=== PATIENT | male | born 1955 | race Hispanic/Latino ===

== ENCOUNTER 2018-09-08 20:00 | Inpatient (IN) | payer OTHER ==
[~2018-09-08] VITALS: Ht 165.1 cm; Wt 97.4 kg
[~2018-09-08 20:00] MED LIST: FENOFIBRATE160 MG PO; GLIPIZIDE5 MG PO; GLUCOPHAGE1000 MG PO; LISINOPRIL20 MG PO; PRILOSEC40 MG PO; ZOCOR40 MG PO
[2018-09-08] MEDS ORDERED: MORPHINE SULFATE INJ 4 MG/ML INJ IV ONE (21:15)
[2018-09-08] MEDS ORDERED: SODIUM CHLORIDE 0.9% 1000ML 1,000 ML IV ONE (21:15)
[2018-09-08] MEDS ORDERED: DIATRIZOATE MEGL/DIATRIZOA SOD 30 ML BTL PO ONE (21:17)
[2018-09-08 21:29] LABS: BASOPHILS % 0.3 % (0.0-1.0); HEMATOCRIT 47.5 % (38.2-49.6); HEMOGLOBIN 16.7 g/dL (14.0-18.0); LYMPHOCYTES # (AUTO) 0.8 (1.0-3.2); LYMPHOCYTES % 10.2 % (18.0-39.1); MEAN CORPUSCULAR HEMOGLOBIN 32.6 pg (28-32); MEAN CORPUSCULAR HGB CONC 35.2 g/dL (31-35); MEAN CORPUSCULAR VOLUME 92.6 fL (81-99); MONOCYTES # (AUTO) 0.4 (0.2-0.8); NEUTROPHILS # (AUTO) 6.1 (2.1-6.9); NEUTROPHILS % 83.1 % (38.7-80.0); PLATELET COUNT 184 x10e3/uL (140-360); RED BLOOD COUNT 5.13 x10e6/uL (4.3-5.7); RED CELL DISTRIBUTION WIDTH 13.6 % (11.7-14.4)
[2018-09-08] MEDS ORDERED: ONDANSETRON HCL INJ 2 MG/ML VIAL IV ONE (21:30)
[2018-09-08 21:51] LABS: CLARITY,URINE HAZY (CLEAR); COLOR,URINE YELLOW (YELLOW)
[2018-09-08 21:52] LABS: BILIRUBIN,URINE 1+ (NEGATIVE); KETONES,URINE 1+ (NEGATIVE); LEUKOCYTE ESTERASE ,URINE NEGATIVE (NEGATIVE); NITRITE,URINE NEGATIVE (NEGATIVE); PROTEIN,URINE DIPSTICK 2+ (NEGATIVE); URINE UROBILINOGEN 1 mg/dL (0.2 - 1)
[2018-09-08 21:53] LABS: BACTERIA,URINE MODERATE /HPF; EPITHELIAL CELLS,URINE FEW /LPF; WBC,URINE (MAN) 0-5 /HPF (0-5)
[2018-09-08 21:55] LABS: ALANINE AMINOTRANSFERASE 44 IU/L (0-55); ALBUMIN 4.7 g/dL (3.5-5.0); ALBUMIN/GLOBULIN RATIO 1.8 (0.8-2.0); ALKALINE PHOSPHATASE 44 IU/L (40-150); AMYLASE 47 U/L (25-125); ANION GAP 18.2 mmol/L (8-16); BLOOD UREA NITROGEN 19 mg/dL (7-26); BUN/CREATININE RATIO 17 (6-25); CALCIUM 10.1 mg/dL (8.4-10.2); CARBON DIOXIDE 23 mmol/L (22-29); CHLORIDE 99 mmol/L (98-107); CREATININE, SERUM 1.09 mg/dL (0.72-1.25); EST GLOMERULAR FILTRATION RATE > 60 ML/MIN (60-); GLUCOSE 237 mg/dL (74-118); LIPASE 7 U/L (8-78); POTASSIUM 4.2 mmol/L (3.5-5.1); SODIUM 136 mmol/L (136-145)
[2018-09-08] MEDS ORDERED: IOPAMIDOL 370 MG/ML 200 ML INFUS..BTL INJ ONE (22:16)
[2018-09-08] MEDS ORDERED: SODIUM CHLORIDE 0.9% 50ML 50 ML ONE (22:16)
--- NOTE | 2018-09-08 22:57 | Diagnostic Imaging Report ---
EXAM: CT ABDOMEN/PELVIS W DATE: 09/08/2018 9:03 PM INDICATION: Abdominal pain COMPARISON: None TECHNIQUE: The abdomen and pelvis were scanned using a multidetector helical scanner. Coronal and sagittal reformations were obtained. CT low dose techniques were utilized, as applicable. IV Contrast: 100 ml Isovue 300/370 FINDINGS: LOWER THORAX: No consolidations LIVER/BILIARY: Hepatic steatosis. No masses. No ductal dilatation. GALLBLADDER: Unremarkable SPLEEN: Unremarkable PANCREAS: Unremarkable ADRENALS: No nodules KIDNEYS: No suspicious renal masses. Probable right superior renal cyst. No hydronephrosis. GI TRACT: Distended loops small bowel with transition point in the right lower quadrant. Remainder of the small bowel is decompressed. Normal appendix. VESSELS: Moderate atherosclerotic changes PERITONEUM/RETROPERITONEUM: Mild mesenteric edema and free fluid. LYMPH NODES: No lymphadenopathy REPRODUCTIVE ORGANS/BLADDER: Penile implants device noted. Mild prostatomegaly. Unremarkable bladder.. SOFT TISSUES: Unremarkable BONES: No suspicious bone lesions. IMPRESSION: Small bowel obstruction with transition point in the right anterior abdomen, likely adhesive disease. Signed by: Dr Lian Medina MD on 09/08/2018 10:53 PM
[2018-09-08] MEDS ORDERED: PIPER-TAZ 3.375 GM 50 ML IV ONE (23:15)
--- NOTE | 2018-09-08 23:15 | NUR ---
18FR NGT INSERTED TO L NARE PER MD ORDERS. 700CC BROWNISH COLORED FLUID SUCTIONED P NGT PLACED. NGT PLACEMENT VERIFIED BY AUSCULTATION AND SECURED IN PLACE.
[2018-09-08] MEDS ORDERED: OMEGA 3 1,0001 EACH PO (23:51)
[2018-09-08] MEDS ORDERED: ACTOS15 MG PO (23:51)
[2018-09-08] MEDS ORDERED: PANTOPRAZOLE SO40 MG PO (23:51)
[2018-09-08] MEDS ORDERED: SODIUM CHLORIDE 0.9% 1000ML 1,000 ML IV SCH (23:55)
[2018-09-09] VITALS (10 sets, daily range): BP systolic 122–153; BP diastolic 66–86
[2018-09-09] MEDS ORDERED: DEXTROSE 50% SYRINGE 50 ML IV PRN
--- OUTSIDE RECORDS SUMMARY | 2018-09-09 00:02 | XMS REPORT ---
[facility] Address Unknown Phone Unavailable Care Team Providers Care Vascular Technician Name Role Phone Kristen IRBY Unavailable Unavailable Problems This patient has no known problems. Allergies, Adverse Reactions, Alerts This patient has no known allergies or adverse reactions. Medications This patient has no known medications. Results Test Description Test Time Test Comments Text Results Atomic Results Result Comments CT ABDOMEN/PELVIS W 2018-09-08 22:46:00 [place] [address] Patient Name: BRIAN PICHARDO MR #: [id number] : 1955 Age/Sex: 63/M Req #: [id number] Adm Physician: Ordered by: CONG IRBY MD Report #: [id number] Location: ER Room/Bed: Procedure: [id number] CT/CT ABDOMEN/PELVIS W Exam Date: 09/08/18 Exam Time: 2215 REPORT STATUS: Signed EXAM: CT ABDOMEN/PELVIS W DATE: 09/08/2018 9:03 PM INDICATION: Abdominal pain COMPARISON: None TECHNIQUE: The abdomen and pelvis were scanned using a multidetector helical scanner. Coronal and sagittal reformations were obtained. CT low dose techniques were utilized, as applicable. IV Contrast: 100 ml Isovue 300/370 FINDINGS: LOWER THORAX: No consolidations LIVER/BILIARY: Hepatic steatosis. No masses. No ductal dilatation. GALLBLADDER: Unremarkable SPLEEN: Unremarkable PANCREAS: Unremarkable ADRENALS: No nodules KIDNEYS: No suspicious renal masses. Probable right superior renal cyst. No hydronephrosis. GI TRACT: Distended loops small bowel with transition point in the right lower quadrant. Remainder of the small bowel is decompressed. Normal appendix. VESSELS: Moderate atherosclerotic changes PERITONEUM/RETROPERITONEUM: Mild mesenteric edema and free fluid. LYMPH NODES: No lymphadenopathy REPRODUCTIVE ORGANS/BLADDER: Penile implants device noted. Mild prostatomegaly. Unremarkable bladder.. SOFT TISSUES: Unremarkable BONES: No suspicious bone lesions. IMPRESSION: Small bowel obstruction with transition point in the right anterior abdomen, likely adhesive disease. Signed by: Dr Nakia Medina MD on 09/08/2018 10:53 PM Dictated By: NAKIA MEDINA MD 52 Transcribed By: FREEDOM on 09/08/182252 COPY TO: CONG IRBY MD
[2018-09-09] MEDS ORDERED: HYDROMORPHONE 2MG/ML 2 MG/ML ML ONE (01:04)
[2018-09-09] MEDS ORDERED: ONDANSETRON HCL INJ 2 MG/ML VIAL IV STA (01:14)
--- NOTE | 2018-09-09 01:55 | NUR ---
PT ARRIVED TO THE UNIT FROM ER IN A STRETCHER.WITH C/O ABD.PAIN.ASSESSMENT DONE.NO RESP.DISTRESS.AAOX3.18FR NGT PLACED TO L.NARE.NGT TO LIWS.ABD.PAIN VOICED 02/05.MAINTAINING NPO.FAMILY MEMBER AT BED SIDE.SCD APPLIED. PER REPORT FROM ER MD BAGLEY IS AWARE OF THE CONSULTS.ORIENTED TO THE UNIT.BED LOCKED AND IN LOWEST POSITION.PHONE AND CALL LIGHT WITHIN REACH.INSTRUCTED TO CALL FOR ASSISTANCE NEEDED.
[2018-09-09] MEDS ORDERED: HYDROMORPHONE 2MG/ML 2 MG/ML ML IV PRN ×2 (05:02→05:15)
[2018-09-09] MEDS: ONDANSETRON HCL INJ 2 MG/ML VIAL IV PRN ×2 (05:06→09:15)
[2018-09-09] MEDS ORDERED: HYDROMORPHONE 1MG/1ML INJ IV PRN ×2 (05:15)
[2018-09-09] MEDS: PIPER-TAZ 3.375 GM / NS 50ML IV SCH ×3 (05:44→21:49)
[2018-09-09 06:30] LABS: BASOPHILS % 0.3 % (0.0-1.0); EOSINOPHILS % 0.3 % (0.0-6.0); HEMATOCRIT 45.8 % (38.2-49.6); HEMOGLOBIN 15.9 g/dL (14.0-18.0); LYMPHOCYTES # (AUTO) 0.3 (1.0-3.2); LYMPHOCYTES % 9.1 % (18.0-39.1); MEAN CORPUSCULAR HEMOGLOBIN 32.1 pg (28-32); MEAN CORPUSCULAR HGB CONC 34.7 g/dL (31-35); MEAN CORPUSCULAR VOLUME 92.3 fL (81-99); MONOCYTES # (AUTO) 0.5 (0.2-0.8); MONOCYTES % 17.2 % (4.4-11.3); NEUTROPHILS # (AUTO) 2.2 (2.1-6.9); NEUTROPHILS % 72.8 % (38.7-80.0); PLATELET COUNT 172 x10e3/uL (140-360); RED BLOOD COUNT 4.96 x10e6/uL (4.3-5.7); RED CELL DISTRIBUTION WIDTH 13.7 % (11.7-14.4)
[2018-09-09 06:55] LABS: ALANINE AMINOTRANSFERASE 36 IU/L (0-55); ALBUMIN 4.1 g/dL (3.5-5.0); ALBUMIN/GLOBULIN RATIO 1.7 (0.8-2.0); ALKALINE PHOSPHATASE 38 IU/L (40-150); BLOOD UREA NITROGEN 19 mg/dL (7-26); BUN/CREATININE RATIO 20 (6-25); CALCIUM 9.2 mg/dL (8.4-10.2); CARBON DIOXIDE 23 mmol/L (22-29); CHLORIDE 102 mmol/L (98-107); CREATININE, SERUM 0.93 mg/dL (0.72-1.25); EST GLOMERULAR FILTRATION RATE > 60 ML/MIN (60-); GLUCOSE 228 mg/dL (74-118); SODIUM 138 mmol/L (136-145)
--- NOTE | 2018-09-09 07:00 | NUR ---
Report given to the oncoming rn.walking rounds done.stable condition.
--- NOTE | 2018-09-09 07:26 | NUR ---
Received patient this morning, in bed a/ox3, pains well managed and patient with SBO, NG tube in place to LIWS, call light within reach, in room with patient, will monitor
[2018-09-09] MEDS: INSULIN REGULAR, HUMAN 100 UNIT/1 ML 3ML VIAL SQ SCH ×4 (07:30→20:29)
[2018-09-09 08:49] LABS: BAND NEUTROPHILS % (MANUAL) 10 %; LYMPHOCYTES % (MANUAL) 20 % (19-48); MONOCYTES % (MANUAL) 16 % (3.4-9.0); NEUTROPHILS % (MANUAL) 54 % (40-74)
[2018-09-09 08:51] LABS: PLATELET ESTIMATE ADEQUATE; PLATELET MORPHOLOGY COMMENT NORMAL; RBC MORPHOLOGY COMMENT NORMAL
[2018-09-09] MEDS: SODIUM CHLORIDE 0.45% 1,000 ML IV SCH ×2 (08:57→16:11)
[2018-09-09] MEDS: PANTOPRAZOLE 40 MG 10ML VIAL IV SCH (08:57)
[2018-09-09] MEDS: HYDROMORPHONE 2MG/ML 2 MG/ML ML IV PRN (09:16)
--- NOTE | 2018-09-09 09:26 | History and Physical ---
CHIEF COMPLAINT: Abdominal pain, distention, nausea, and vomiting. HISTORY OF PRESENT ILLNESS: The patient is a 63-year-old man. He had a partial small bowel obstruction 2 years ago that was treated conservatively at the [facility]. He now complains of vomiting for about 24 hours. He also notes no bowel movements and no flatulence. He does feel some nausea, but has not had any vomiting. He denies any fevers. PAST SURGICAL HISTORY: Status post umbilical hernia repair. PAST MEDICAL HISTORY 1. Hypertension. 2. Diabetes, it does not require insulin. 3. History of partial small bowel obstruction. SOCIAL HISTORY: No prior smoking. No history of alcohol. ALLERGIES: THE PATIENT HAS NO KNOWN DRUG ALLERGIES. FAMILY HISTORY: Noncontributory. REVIEW OF SYSTEMS: The patient is afebrile. He has no headache. He does not complain of any swollen glands. He has no sore throat. He is not having any difficulty breathing. He does not have any chest pain. He does note abdominal pain with some nausea and vomiting. He does not have any bowel movements for the past day or 2. He does not complain of any neurological problems. PHYSICAL EXAMINATION VITAL SIGNS: The patient is afebrile, blood pressure 153/81, pulse is 95, and saturation is 96%. HEENT: Examination shows no facial swelling or erythema. The nasal mucosa is normal. The oropharynx is normal. LYMPHATIC: Examination shows no submandibular, cervical, or supraclavicular adenopathy. NECK: Shows no JVD or thyromegaly. There is no nuchal rigidity. CARDIOVASCULAR: Reveals regular rate and rhythm with normal S1 and S2. There are no murmurs or rubs. RESPIRATORY: Auscultation of lungs is clear. Breath sounds bilaterally. There is no wheezing. ABDOMEN: Distended. There is no rebound or guarding. There are increased bowel sounds. It is tympanitic. EXTREMITIES: There is no leg edema. NEUROLOGIC: He has no focal neurological problems. RADIOGRAPHIC DATA: CT scan of the abdomen and pelvis shows a small bowel obstruction with a transition point in the right anterior abdomen. LABORATORY DATA: White blood cell count is 2.97 with a hemoglobin of 15.9, and a platelet count of 172. The BUN to creatinine ratio is normal. The other electrolytes are within normal limits. Blood sugar is 228. Urinalysis shows 2+ protein, 2+ glucose, and a pH of 1.025. IMPRESSION 1. Small bowel obstruction. 2. Leukopenia. 3. Diabetes. 4. Hypertension. PLAN 1. The patient has an NG tube and is n.p.o. 2. IV antibiotics. 3. Surgical consultation. 4. Monitor uncontrolled diabetes. 5. Pain control. Job#: [id number] DE
[2018-09-09] MEDS: ENALAPRILAT IV INJ 1.25 MG/ML VIAL IV SCH ×2 (12:52→17:14)
--- NOTE | 2018-09-09 13:16 | Diagnostic Imaging Report ---
EXAMINATION: ABDOMEN 2 VIEW INDICATION: Small bowel obstruction. COMPARISON: CT abdomen pelvis 09/08/2018. FINDINGS: Interval placement of enteric tube, which terminates in the expected location of stomach. The side port is below the GE junction. Increased dilatation of small bowel loops, which measure up to 6.1 cm. Multiple air-fluid levels on upright view. No evidence of free intraperitoneal air. Air is seen within nondistended colon. Patchy opacities at the left lung base, likely represent atelectasis. IMPRESSION: Enteric tube terminates in the stomach. Increased dilatation of small bowel loops measuring up to 6.1 cm. Findings consistent with partial small bowel obstruction. No evidence of free intraperitoneal air. Signed by: Dr. Brown Carrington MD on 09/09/2018 1:13 PM
--- NOTE | 2018-09-09 19:04 | NUR ---
Report given to on coming nurse and rounds completed, patient alert and responsive, some abdl pains, NG tube in place with total output 400cc this shift, call light within reach and in room with patient.
--- NOTE | 2018-09-09 19:45 | NUR ---
ASSESSMENT DONE.NO RESP.DISTRESS.VOIDED.MAINTAINING NPO.NG TUBE TO LIWS.FAMILY MEMBER AT BEDSIDE.BED LOCKED AND IN LOWEST POSITION.PHONE AND CALL LIGHT WITHIN REACH.INSTRUCTED TO CALL FOR ASSISTANCE NEEDED.
[2018-09-10] VITALS (7 sets, daily range): BP systolic 120–152; BP diastolic 63–81
[2018-09-10] MEDS: SODIUM CHLORIDE 0.45% 1,000 ML IV SCH ×3 (00:15→12:05)
[2018-09-10] MEDS: ENALAPRILAT IV INJ 1.25 MG/ML VIAL IV SCH ×4 (00:15→18:38)
[2018-09-10] MEDS: ONDANSETRON HCL INJ 2 MG/ML VIAL IV PRN (00:41)
[2018-09-10] MEDS: HYDROMORPHONE 2MG/ML 2 MG/ML ML IV PRN (00:42)
--- NOTE | 2018-09-10 03:00 | NUR ---
HAS C/O PRODUCTIVE COUGH.PASSES FLATUS.PAIN MEDICINE GIVEN.
[2018-09-10] MEDS: PIPER-TAZ 3.375 GM / NS 50ML IV SCH ×3 (06:07→21:18)
--- NOTE | 2018-09-10 06:20 | NUR ---
PT OFF THE UNIT FOR ABD.X RAY.
[2018-09-10 06:22] LABS: BASOPHILS % 0.5 % (0.0-1.0); EOSINOPHILS # (AUTO) 0.1 (0.0-0.4); EOSINOPHILS % 1.2 % (0.0-6.0); HEMATOCRIT 42.1 % (38.2-49.6); HEMOGLOBIN 14.3 g/dL (14.0-18.0); LYMPHOCYTES % 22.8 % (18.0-39.1); MEAN CORPUSCULAR HEMOGLOBIN 31.9 pg (28-32); MONOCYTES # (AUTO) 0.6 (0.2-0.8); MONOCYTES % 14.2 % (4.4-11.3); NEUTROPHILS # (AUTO) 2.6 (2.1-6.9); NEUTROPHILS % 60.8 % (38.7-80.0); PLATELET COUNT 141 x10e3/uL (140-360); RED BLOOD COUNT 4.48 x10e6/uL (4.3-5.7); RED CELL DISTRIBUTION WIDTH 13.8 % (11.7-14.4)
--- NOTE | 2018-09-10 06:34 | NUR ---
PT BACK TO THE UNIT IN A STABLE CONDITION.
--- NOTE | 2018-09-10 06:50 | NUR ---
REPORT GIVEN TO THE ONCOMING RN.WALKING ROUNDS DONE.STABLE CONDITION.
[2018-09-10 06:58] LABS: ALANINE AMINOTRANSFERASE 26 IU/L (0-55); ALBUMIN 3.6 g/dL (3.5-5.0); ALBUMIN/GLOBULIN RATIO 1.5 (0.8-2.0); ALKALINE PHOSPHATASE 32 IU/L (40-150); ANION GAP 15.6 mmol/L (8-16); BLOOD UREA NITROGEN 19 mg/dL (7-26); BUN/CREATININE RATIO 18 (6-25); CALCIUM 8.6 mg/dL (8.4-10.2); CARBON DIOXIDE 24 mmol/L (22-29); CHLORIDE 101 mmol/L (98-107); CREATININE, SERUM 1.05 mg/dL (0.72-1.25); EST GLOMERULAR FILTRATION RATE > 60 ML/MIN (60-); GLUCOSE 164 mg/dL (74-118); POTASSIUM 3.6 mmol/L (3.5-5.1); SODIUM 137 mmol/L (136-145)
--- NOTE | 2018-09-10 08:04 | Diagnostic Imaging Report ---
Exam: KUB with PA chest. Clinical History: Small bowel obstruction Comparison: KUB 09/09/2018 DISCUSSION: Previously visualized dilated loops of small bowel on KUB dated 09/09/2018 are not seen in the current exam. No significant air-fluid levels are seen. There are no dilated, air-filled loops of bowel. Unchanged enteric tube with distal tip coiled in the stomach fundus. No abnormal calcifications. No acute bony abnormalities. Stable pelvic phleboliths Hypoinflated lungs. Stable elevation of the right hemidiaphragm secondary to eventration. Persistent airspace opacity in the left lower lung and partial obscuration of the left hemidiaphragm and left costophrenic angle, likely reflecting left pleural effusion and associated atelectasis and/or consolidation. Cardiac silhouette is prominent, likely due to hyperinflated lungs. Central pulmonary venous crowding. No acute bony abnormalities. IMPRESSION: 1. Marked improvement in previously visualized bowel dilation. No air-filled, dilated loops of bowel are seen in the current exam. 2. Left pleural effusion and associated atelectasis and/or consolidation. The staff physician below has personally reviewed this exam on the date of dictation. Signed by: Dr. Mansoor Phillips M.D. on 09/10/2018 8:01 AM
[2018-09-10] MEDS: PANTOPRAZOLE 40 MG 10ML VIAL IV SCH (08:15)
[2018-09-10] MEDS: INSULIN REGULAR, HUMAN 100 UNIT/1 ML 3ML VIAL SQ SCH ×4 (08:15→21:18)
[2018-09-10] MEDS ORDERED: ACETAMINOPHEN 1000 MG/100 ML IV PRN (15:00)
--- NOTE | 2018-09-10 19:50 | NUR ---
Assessment done.No resp.distress.ambulates.passes flatulence.no bm.family member at bed side.bed locked and in lowest position.phone and call light within reach.instructed to call for assistance as needed.
[2018-09-10] MEDS: BISACODYL 10 MG SUPP PR SCH (21:17)
[2018-09-11] VITALS (7 sets, daily range): BP systolic 115–160; BP diastolic 60–76
[2018-09-11] MEDS: SODIUM CHLORIDE 0.45% 1,000 ML IV SCH ×2 (00:10→14:30)
[2018-09-11] MEDS: ENALAPRILAT IV INJ 1.25 MG/ML VIAL IV SCH ×4 (00:10→18:09)
[2018-09-11] MEDS: PIPER-TAZ 3.375 GM / NS 50ML IV SCH ×3 (06:18→21:28)
--- NOTE | 2018-09-11 06:21 | NUR ---
PT IS HAVING PAIN @ IV SITE.REMOVED AND APPLIED PRESSURE DRESSING.NEW IV STARTED@ L.F.ARM.#20.PATENT.
--- NOTE | 2018-09-11 06:39 | Diagnostic Imaging Report ---
ABDOMEN 2 VIEW Clinical history: Small bowel obstruction Technique: AP view abdomen Comparison: Previous day Findings: NG-tube terminates within the stomach. No dilated loops of small or large bowel appreciated. No evidence of free air. Penile implant noted. Note that portions of the lateral abdomen are excluded. Impression: No radiographic evidence of obstruction. Signed by: Dr Lian Medina MD on 09/11/2018 6:35 AM
--- NOTE | 2018-09-11 06:41 | Diagnostic Imaging Report ---
CHEST 2 VIEWS, Technique: CHEST 2 VIEWS Comparison: 09/09/2018 Clinical history: Pleural effusion DISCUSSION: A G-tube terminates within the stomach. Stable mildly enlarged cardiac silhouette. No consolidation or edema. Stable blunting of the left costophrenic angle. IMPRESSION: Stable blunting of the left costophrenic angle, either trace pleural fluid or pleural thickening with overlying atelectasis/scarring. Signed by: Dr Lian Medina MD on 09/11/2018 6:38 AM
--- NOTE | 2018-09-11 07:00 | NUR ---
REPORT GIVEN TO THE ONCOMING RN.WALKING ROUNDS DONE.STABLE CONDITION.
[2018-09-11] MEDS: INSULIN REGULAR, HUMAN 100 UNIT/1 ML 3ML VIAL SQ SCH ×4 (07:30→21:00)
[2018-09-11] MEDS: PANTOPRAZOLE 40 MG 10ML VIAL IV SCH (09:11)
[2018-09-11] MEDS: BISACODYL 10 MG SUPP PR SCH ×2 (09:11→21:00)
--- NOTE | 2018-09-11 09:11 | NUR ---
assessment complete no distress noted updated on poc voiced understanding, denies pain at this time, ng to l nare with greenish fluid noted,ivf infusing to l fa 20g no ss of infiltration noted, no other co voiced call light in reach will continue to monitor
--- NOTE | 2018-09-11 11:15 | NUR ---
ng removed as per ordered, pt tolerated well
--- NOTE | 2018-09-11 14:20 | NUR ---
CASE MANAGEMENT INITIAL ASSESSMENT Feed Manager to bedside to discuss plan of care with patient/family. CM/SW role and care transitions discussed. Anticipated discharge plan discussed along with duration of care. CM discussed patients right to make decisions in care. CM/SW work hours given. Patient lives: PATIENT STAYS WITH IN [address] [facility] [id number] Admit/Transfer: ED POA/Emergency contact: : JONI PICHARDO: [phone] Current/Previous Home Health: NONE PCP/Follow-up Care: DR. BRIAN ADAMS Current/Previous DME: NONE Other Services: NONE Employment Status: EMPLOYED Areas of Concerns: NONE AT THIS TIME Referral Needs: NONE AT THIS TIME Education Needs: NONE IMM/CHING given and signed (if applicable): N/A Goal for discharge: DISCHARGE HOME WITH NO NEEDS CM left business card at the bedside with contact information. Name and number was also written on the patients whiteboard. Patient verbalized understanding of discussion. CM will follow-up with ongoing discharge and transition of care needs.
--- NOTE | 2018-09-11 19:00 | NUR ---
Received change of shift report from AM nurse. Walking rounds completed.
[2018-09-12] VITALS (8 sets, daily range): BP systolic 122–136; BP diastolic 66–82
--- NOTE | 2018-09-12 | NUR ---
Patient AAOx3. Denies pain at this time. at bedside. No c/o at this time.
[2018-09-12] MEDS: SODIUM CHLORIDE 0.45% 1,000 ML IV SCH ×3 (01:50→15:18)
--- NOTE | 2018-09-12 04:00 | NUR ---
Patient resting quitly at this time. Continue monitor.
[2018-09-12] MEDS: PIPER-TAZ 3.375 GM / NS 50ML IV SCH ×3 (05:26→21:45)
[2018-09-12] MEDS: ENALAPRILAT IV INJ 1.25 MG/ML VIAL IV SCH ×3 (06:00→17:12)
--- NOTE | 2018-09-12 07:03 | NUR ---
Walking rounds done and report received from night nurse. Patient is awake and alert x3 in NAD. He denies any pain or nausea. POC discussed. Patient instructed to call for assistance in Lithuanian as needed and verbalized understanding. Call child within reach.
[2018-09-12] MEDS: INSULIN REGULAR, HUMAN 100 UNIT/1 ML 3ML VIAL SQ SCH ×4 (07:30→21:45)
[2018-09-12] MEDS: BISACODYL 10 MG SUPP PR SCH (08:30)
[2018-09-12] MEDS: PANTOPRAZOLE 40 MG 10ML VIAL IV SCH (09:05)
--- NOTE | 2018-09-12 17:30 | NUR ---
Patient is ambulating in the room without any complaints.
--- NOTE | 2018-09-12 19:00 | NUR ---
WALKING ROUNDS PERFORMED, RECEIVED PT LAYING SEMI FOWLERS IN BED, AAOX3, RR EVEN AND NON-LABORED, ON RA. NO S/SX OF DISTRESS NOTED. LEFT PT LAYING SEMI FOWLERS IN BED, BED IN LOW LOCKED POSITION, SIDE RAILS UPX2, CALL LIGHT AND PHONE WITHIN REACH. FAMILY AT BEDSIDE.
[2018-09-13] VITALS: BP 131/78
[2018-09-13] MEDS: ENALAPRILAT IV INJ 1.25 MG/ML VIAL IV SCH ×3 (00:30→12:24)
[2018-09-13 04:00] VITALS: BP 146/84
[2018-09-13] MEDS: SODIUM CHLORIDE 0.45% 1,000 ML IV SCH (04:25)
[2018-09-13] MEDS: PIPER-TAZ 3.375 GM / NS 50ML IV SCH ×2 (06:06→13:16)
--- NOTE | 2018-09-13 07:00 | NUR ---
RECEIVED SHIFT CHANGE ROUNDING REPORT FROM NIGHT RN. PT DENIES NEEDS AT THIS TIME.
[2018-09-13 07:47] VITALS: BP 135/71
[2018-09-13] MEDS ORDERED: BISACODYL 10 MG SUPP PR NR (08:00)
[2018-09-13] MEDS: PANTOPRAZOLE 40 MG 10ML VIAL IV SCH (08:20)
[2018-09-13] MEDS: INSULIN REGULAR, HUMAN 100 UNIT/1 ML 3ML VIAL SQ SCH ×2 (08:21→12:24)
[2018-09-13 09:00] VITALS: BP 135/71
[2018-09-13 12:00] VITALS: BP 134/78
--- NOTE | 2018-09-14 01:01 | Discharge Summary ---
DISCHARGE DIAGNOSES 1. Small bowel obstruction. 2. Diabetes. 3. Hypertension. CONSULTING PHYSICIAN: Dr. Liam Barragan of general surgery. RADIOGRAPHIC DATA: CT scan of the abdomen and pelvis shows a possible small-bowel obstruction with a transition point in the right anterior abdomen. DISCHARGE MEDICATIONS 1. Glipizide 10 mg p.o. b.i.d. 2. Lisinopril 20 mg p.o. daily. 3. Glucophage 1000 mg p.o. b.i.d. 4. Omeprazole 40 mg p.o. daily. 5. Simvastatin 40 mg p.o. daily. 6. Actos 45 mg p.o. daily. HISTORY OF PRESENT ILLNESS: Patient is a 63-year-old man. He has a history of prior umbilical hernia repair with a mesh. He had a small bowel obstruction about 2 years ago that resolved with conservative treatment. He now comes in complaining of worsening nausea and vomiting for 24 hours. He denies any fevers. He is not having any back pain. PHYSICAL EXAMINATION VITAL SIGNS: The patient is afebrile. The blood pressure is 134/78 and the pulse is 63. HOSPITAL COURSE: The patient was admitted. A CT scan showed a probable small-bowel obstruction. He had an NG placed for decompression. He was start on IV antibiotics and fluids. He received consultation by general surgery. The patient gradually improved. He had radiographic the clinical resolution of his abdominal distention and vomiting. He tolerated a clear liquid which was advanced to full liquids and eventually to regular diet. DISPOSITION: The patient will follow up with Dr. Barragan in 5 to 7 days. The patient will also follow up with Dr. Felice Lopez. ANGELINA GRAVES MD Job#: [id number] GE cc:FELICE LOPEZ
== END 2018-09-13 15:30 | disposition home or self-care (01) | DRG 390 ==
LOC: ER 20:00 → ERHOLD 09-09 → MED/SURG 09-09 01:54
PROVIDERS: ADMIT Internal Medicine Critical Care Medicine; ATTEND Internal Medicine Critical Care Medicine
DX: K56.600 Partial intestinal obstruction, unspecified as to cause (principal); I10 Essential (primary) hypertension; E11.9 Type 2 diabetes mellitus without complications; D72.819 Decreased white blood cell count, unspecified
CPT/HCPCS: 36415; 71046; 74019; 74022; 74177; 80053; 81001; 82150; 82948; 83690; 85025; 96374; 99284; J2270; J2405; J2543; J7030; Q9967

== ENCOUNTER 2023-10-03 15:52 | Emergency (ER) | payer MEDICARE, OTHER ==
[~2023-10-03] VITALS: Ht 165.1 cm; Wt 97.1 kg
[2023-10-03 15:52] VITALS: O2SAT 100
[~2023-10-03 15:52] MED LIST changes: +ACTOS15 MG PO; +OMEGA 3 1,0001 EACH PO; +PANTOPRAZOLE SO40 MG PO
[2023-10-03 17:32] LABS: BASOPHILS % 0.4 % (0.0-1.0); EOSINOPHILS # (AUTO) 0.1 (0.0-0.4); EOSINOPHILS % 2.2 % (0.0-6.0); HEMATOCRIT 42.8 % (38.2-49.6); HEMOGLOBIN 14.2 g/dL (14.0-18.0); LYMPHOCYTES # (AUTO) 1.3 (1.0-3.2); LYMPHOCYTES % 29.5 % (18.0-39.1); MEAN CORPUSCULAR HEMOGLOBIN 32.3 pg (28-32); MEAN CORPUSCULAR HGB CONC 33.2 g/dL (31-35); MEAN CORPUSCULAR VOLUME 97.3 fL (81-99); MONOCYTES # (AUTO) 0.4 (0.2-0.8); MONOCYTES % 8.8 % (4.4-11.3); NEUTROPHILS # (AUTO) 2.7 (2.1-6.9); NEUTROPHILS % 58.4 % (38.7-80.0); PLATELET COUNT 170 x10e3/uL (140-360); RED CELL DISTRIBUTION WIDTH 13.5 % (11.7-14.4); WHITE BLOOD COUNT 4.54 x10e3/uL (4.8-10.8)
[2023-10-03 17:53] LABS: ALBUMIN/GLOBULIN RATIO 1.4 (0.8-2.0); ANION GAP 16.1 mmol/L (8-16); BILIRUBIN,TOTAL 0.5 mg/dL (0.2-1.2); CALCIUM 8.6 mg/dL (8.4-10.2); CREATININE, SERUM 0.9 mg/dL (0.72-1.25); POTASSIUM 4.1 mmol/L (3.5-5.1); TOTAL PROTEIN 6.8 g/dL (6.5-8.1)
[2023-10-03] MEDS: TETANUS/DIPHTHERIA TOX ADULT 0.5 ML SYR IM ONE (17:57)
[2023-10-03] MEDS ORDERED: BACTRIM DS TAB1 EACH PO (17:57)
[2023-10-03] MEDS ORDERED: ULTRAM 50MG50 MG PO (17:58)
== END 2023-10-03 18:07 | disposition home or self-care (01) ==
LOC: ER 16:02
DX: Z89.021 Acquired absence of right finger(s) (principal); W45.8XXA Other foreign body or object entering through skin, initial encounter; Y92.89 Other specified places as the place of occurrence of the external cause; I10 Essential (primary) hypertension; E11.65 Type 2 diabetes mellitus with hyperglycemia; E78.5 Hyperlipidemia, unspecified; E78.00 Pure hypercholesterolemia, unspecified; K21.9 Gastro-esophageal reflux disease without esophagitis
CPT/HCPCS: 36415; 73130; 80053; 82948; 85025; 90471; 90714; 99283; J2543